=== PATIENT | female | born 1965 | race Caucasian/White ===

== ENCOUNTER 2024-05-29 19:33 | Emergency (ER) | payer OTHER, SELFPAY ==
[2024-05-29 19:39] VITALS: BP 161/97
--- NOTE | 2024-05-29 20:57 | ED.GENMED ---
History of Present Illness
General
Chief Complaint: Foreign Body Removal
Source: patient
Exam Limitations: none
Time Seen by Provider: 05/29/24 20:02
Nursing documentation reviewed up to this point in time: agreed with
History of Present Illness
History of Present Illness:
59-year-old female presents to the emergency room for rectal foreign body. Patient reports that she was inserting a dildo into her rectum using a silicone sheath 1 week ago. She says that when she remove the dulled out the sheath was no longer on
it and she could feel that it was retained in her rectum. She tried to remove it herself unsuccessfully. She says that she has been using MiraLAX to try and pass stools and passed the foreign body but despite having multiple bowel movements since
then she has not seen the foreign body pass. She says she is starting to have some discomfort and decided to come to the emergency room to be evaluated. She has not noticed any drainage from her rectum. Denies any fevers or chills. Denies other
complaints.
Review of Systems
Review of Systems
All Other Systems: ROS reviewed and negative except as documented in HPI and ROS
ABD/GI: Reports other (Rectal foreign body)
Phy Exam
Physical Exam
Physical Exam:
General: Awake, alert, oriented x3; no acute distress
Head: Normocephalic, atraumatic
Eyes: Conjunctiva normal
Throat: Airway intact, handling secretions
Neck: Trachea midline, supple without meningismus
Lungs: Breathing comfortably no distress
Heart: Regular rate
Abd: Soft, non distended, nontender
Rectal: No palpable foreign body in the rectal vault
Extremities: Warm well-perfused
Scores
Heart Failure Risk
Heart Failure Risk Score: Not Applicable
Heart Score for Chest Pain Patients
STEMI patient?: Not applicable
Withdrawal Assessment of Alcohol
Withdrawal Assessment Completed?: Not applicable
Course
Orders/Labs/Results
Orders:
Orders
05/29/24 20:25
CT Abd/pel Without Iv Or Oral Urgent
Comment:
Reason For Exam: retained silicone sheath in rectum
05/29/24 21:34
Urinalysis Reflex To Culture Urgent
Date Specimen was Collected: 05/29/24
Time Specimen was Collected: 21:33
Urine Microscopic Reflex Cult Urgent
Urine Culture Urgent
[facility] Source: U
Specimen Description:
Date Specimen was Collected: 05/29/24
Time Specimen was Collected: 21:33
Abnormal Lab Results
05/29/24
21:34
Ur Occult Blood Reflex 2+ A
(Negative)
Leukocyte Esterase Rfl 1+ A
(Negative)
Urine RBC 3-6 A /HPF
(0-2)
Urine WBC (Reflex) 16-20 A /HPF
(0-5)
Urine Bacteria (Reflex) Many A
(Negative)
Vital Signs
Initial and Last Documented VS:
Initial Vital Signs
Temp Pulse Resp BP Pulse Ox
36.8 C 80 16 161/97 98
05/29/24 19:39 05/29/24 19:39 05/29/24 19:39 05/29/24 19:39 05/29/24 19:39
Last Documented Vital Signs
Temp Pulse Resp BP Pulse Ox
36.8 C 66 16 123/78 96
05/29/24 19:39 05/29/24 21:30 05/29/24 21:30 05/29/24 21:30 05/29/24 21:30
MDM/Problems Addressed
Differential Diagnosis Includes:
Rectal foreign body
MDM/Problems Addressed:
59-year-old female presents to the emergency room for rectal foreign body�she was using dildo with a silicone sheath�it is a rather thick but soft and pliable silicone ribbed sheath approximately 4 cm diameter and cylindrical. Not palpable on exam
at bedside. Performed anoscopy at bedside and no visualized foreign body. Will check CT as I suspect that this is not radiopaque and visible by x-ray. Reassess after the above.
CT called back by radiology�no foreign body noted. Patient has been having bowel movements suspect she likely passed unknowingly. While here patient did note that she is having some mild dysuria and so we sent a urinalysis which was positive for
infection�will treat with some Keflex. Stable for discharge. All questions answered.
Acute Exacerbation and/or Progression of Chronic Illness:
Acute hypertensive
Acute Exacerbation and/or Progression of Chronic Illness: HTN
*Radiology
Radiology exam reviewed: radiology read reviewed
*Pulse Oximetry
Patient hypoxic: no
*Critical Care Note
Total Time (30-74mins, 75-104mins- exclusive of procedures): Not Applicable
Data Reviewed
Source: patient
ED Attending Note
-
Portions of this chart may have been created with voice recognition software.� Occasional wrong word or��sound alike� substitutions may have occurred due to the inherent limitations of voice recognition software.
Discharge Plan
Departure
Patient Disposition: Home (Routine Discharge)
Date of Disposition: 05/29/24
Time of Disposition: 23:59
Patient with high blood pressure during this ER visit?: No
Discharge Problem:
Rectal foreign body, UTI (urinary tract infection)
Instructions: Rectal Foreign Body Removal (DC), Urinary Tract Infection, Adult ED
Prescriptions:
New
nitrofurantoin monohyd/m-cryst [Macrobid] 100 mg capsule
100 mg PO Q12H 5 Days Qty: 10 0RF
Referrals:
UNKNOWN - PT DOES,NOT KNOW [Family Provider] -
Activity Restrictions/Additional Instructions:
Thank you for visiting the Emergency Department at [facility].
1. Please schedule a follow up appointment as directed. Call first thing tomorrow morning to make an appointment.
2. If indicated, please take your medications as instructed and indicated on discharge paperwork.
3. If any of your symptoms do not improve, or persist, or become more severe within 6-12 hours, please return to the emergency department for further care.
4. Please return to the emergency department if you develop a headache, neck pain/stiffness, fever greater than 100.4F, chest pain, shortness of breath, persistent nausea, vomiting, slurred speech, difficulty walking, numbness/tingling, weakness,
signs of infection or any other symptoms that are worrisome to you.
Please call [phone] if you have any questions.
Interventions
Interventions:
*Risk Screen - Suicide Last Done: 05/29/24 19:39
*General Assessment Last Done: 05/29/24 20:31
*Neglect/Abuse Screening Last Done: 05/29/24 19:39
ED- Fall Risk Assessment Last Done: 05/29/24 22:30
*ED COVID-19 Vaccine History Last Done: 05/29/24 23:28
Discharge Date and Time
Print Language: TELUGU
[2024-05-29 21:29] VITALS: BMI 28.1
[2024-05-29 21:30] VITALS: BP 123/78
[2024-05-29 21:42] LABS: Urine Albumin Negative (Neg - Trace); Urine Bilirubin Negative (Negative); Urine Character Clear (Clear); Urine Color Yellow; Urine Glucose Negative (Negative); Urine Ketone Negative (Negative); Urine Leukocyte 1+ (Negative); Urine Nitrite Negative (Negative); Urine Occult Blood 2+ (Negative); Urine Specific Gravity 1.005 (<1.030); Urine Urobilinogen Negative (Neg - 1+); Urine pH 6.5 (5.0-9.0)
[2024-05-29 21:49] LABS: Urine Bacteria Many (Negative); Urine White Cell 16-20 /HPF (0-5)
[2024-05-30 00:02] VITALS: BP 120/69
== END 2024-05-30 00:06 | disposition home or self-care (01) ==
LOC: EMR 19:33
PROVIDERS: EMERGENCY PHYSICIAN Emergency Medicine
DX: T18.5XXA Foreign body in anus and rectum, initial encounter (principal); N39.0 Urinary tract infection, site not specified; W44.9XXA Unspecified foreign body entering into or through a natural orifice, initial encounter
CPT/HCPCS: 99284; 74176; 81003; 81015; 87086